=== PATIENT | female | born 1970 | race Caucasian/White ===

== ENCOUNTER 2020-08-02 06:53 | Inpatient (IN) | payer BC, SELFPAY ==
[2020-08-02] VITALS (13 sets, daily range): BP systolic 95–150; BP diastolic 47–106; PULSE 94–123; RESP 14–20; TEMP 36.3–38.2; O2SAT 94–98; BMI 28.7
--- NOTE | ~2020-08-02 | FL_ITS ---
EXAMINATION: XR FLUOROSCOPY WITH IMAGES CLINICAL INFORMATION: Left ureteral stone COMPARISON: Previous CT of the abdomen and pelvis 08/02/2020 TECHNIQUE: Fluoroscopy performed by Dr. Michael Cuba. Fluoroscopy time: 52 seconds Dose: 11.5 mGy Images: 1 FINDINGS: Image demonstrates the distal end of a left internal ureteral stent. FL/FL guidance in OR IMPRESSION: Fluoroscopy guidance for left ureteral stent placement.
--- NOTE | ~2020-08-02 | CT_ITS ---
EXAMINATION: CT ABDOMEN AND PELVIS WITHOUT CONTRAST CLINICAL INFORMATION: Left flank pain COMPARISON: None TECHNIQUE: Multidetector volumetric imaging was performed from the superior aspect of the liver through the pubic symphysis. Sagittal and coronal reformatted images were obtained on the technologist's workstation. This CT examination was performed using dose optimization techniques as appropriate, variously including the following: *Automated exposure control *Adjustment of mA and/or kV according to patient size (this includes techniques or standardized protocols for targeted exams where dose is matched to indication/reason for exam; i.e. extremities or head) *Use of iterative reconstruction technique DLP: 528 mGy-cm FINDINGS: LUNG BASES: Minimal platelike atelectasis in the left lower lobe lateral basal segment. A small hiatal hernia is suspected. Minimal anterior pericardial effusion noted heart size is mildly enlarged. LIVER, GALLBLADDER, AND BILIARY TREE: The liver is enlarged in size measuring 26 cm. Otherwise normal shape and attenuation. No focal hepatic lesion or biliary ductal dilatation is present. The gallbladder is unremarkable with no evidence of radiopaque gallstones, gallbladder wall thickening, or obvious pericholecystic inflammatory changes. PANCREAS: Unremarkable. SPLEEN: Unremarkable. ADRENAL GLANDS: Unremarkable. KIDNEYS AND URETERS: The kidneys are normal in size, shape, and attenuation. There are clusters of small radiopaque calculi in the lower pole mild irregular measuring at least 1.3 cm. There is a 6 mm left UPJ radiopaque calculi with mild hydronephrosis and left perinephric stranding. Left kidney slightly enlarged.. There is a subtle 4 mm radiopaque calculi mid pole calyx right kidney. There is no right-sided hydronephrosis. BLADDER: Unremarkable. GASTROINTESTINAL TRACT: There is scattered stool and gas seen throughout the colon without distention. The small bowel loops are normal caliber. Appendix is normal caliber with appendicolith. No free air or free fluid seen. ABDOMINAL WALL: A small umbilical hernia containing fat is noted. LYMPH NODES: Normal. VASCULAR: Unremarkable. PELVIC VISCERA: The uterus is anteverted with punctate calcification in the anterior body of uterus. No adnexal mass or free fluid seen. OSSEOUS STRUCTURES: Unremarkable. CT/CT abdomen pelvis wo con IMPRESSION: 6 mm left UPJ obstructive calculi with mild hydroureteronephrosis and perinephric stranding. There is cluster of radiopaque calculi measuring 1.3 cm in the lower pole left kidney. There is a punctate 4 mid calculi mid pole right kidney. No hydronephrosis seen. Mild constipation. Normal appendix with appendicolith
--- NOTE | 2020-08-02 07:07 | ED.BACK ---
HPI - Back Pain/Injury General Chief Complaint: Abdominal Pain Stated Complaint: back pain Time Seen by Provider: 08/02/20 07:07 Source: patient Mode of arrival: ambulatory Limitations: no limitations History of Present Illness HPI Narrative: 49 yo female otherwise healthy here with L flank pain nausea and vomiting, no trauma, no prior events like this, woke up with pain MD elicited complaint: other (flank pain) Onset (ago): hour(s) Timing: constant and progressively worsening Severity: severe Similar Symptoms Previously: No Quality: sharp Location: left flank Radiation: abdomen Exacerbating factors: none Relieving factors: none Context: unknown Associated symptoms: other (nausea and vomiting) Related Data Allergies Allergy/AdvReac Type Severity Reaction Status Date / Time No Known Allergies Allergy Verified 08/02/20 07:21 Review of Systems Review of Systems: Constitutional : No Weight loss, No Fever, No Chills ENT/Mouth : No sore throat, No Rhinorrhea Eyes: No Swelling, No Redness Cardiovascular : No Chest Pain, No SOB, NoEdema Respiratory : No Cough, No Sputum, No Wheezing Gastrointestinal : Positive Nausea, Positive Vomiting, no Diarrhea, positive abdominal Pain, No Hematochezia, No Melena Genitourinary : No Dysuria, No Urinary Frequency, No Hematuria, No Urgency Musculoskeletal : No joint pain, No Myalgias, No Joint Swelling, pos back pain Skin : No Skin Lesions, No rash Neuro : No Weakness, No Numbness, No Dizziness, No Headache Psych : No Anxiety/Panic, No Depression Heme/Lymph: No Bruising, No Lymphadenopathy Endocrine : No Polyuria, No Polydipsia All other systems reviewed and are negative. [facility] Past Medical History Attestation statement: The following information was validated with the patient. Medical History No active medical problems Social History Social History (Updated 08/02/20 @ 07:31 by Layla Elder DO) Patient Tobacco Use Status: Never used Tobacco Use of substances other than those prescribed or required for medical reasons: No Advance Directives: Yes Advance Directives Information Provided: Yes Advance Directives on File: No Patient : No Physical Exam Vital Signs: Vital Signs: Last Vital Signs Temp 99.3 F 08/02/20 10:40 Pulse 109 H 08/02/20 10:40 Resp 14 08/02/20 10:40 BP 135/76 08/02/20 10:40 Pulse Ox 95 08/02/20 10:40 Body Mass Index 28.7 Appearance: Alert. Oriented X3. Anxious in pain mild acute distress. Pacing in room Eyes: Pupils equal, round and reactive to light. ENT: Pharynx normal. Neck: Normal inspection. Neck supple. CVS: Normal heart rate and rhythm. Pulses normal. Respiratory: No respiratory distress. Breath sounds normal. Abdomen: Soft and mild L sided abdominal pain Back: moderate L CVA ttp Skin: Skin warm and dry. Normal skin color. Normal skin turgor. Extremities: No lower extremity edema. No calf ttp Neuro: Oriented X 3. No motor deficit. No sensory deficit. Course Course Course Narrative: call to Dr. Cuba 934am - plan to admit plan to admit for procedure, patient has been NPO since arrival MDM - Back Pain/Injury MDM Narrative Medical decision making narrative: 49 yo female otherwise healthy here with L flank pain nausea and vomiting, no trauma, no prior events like this, woke up with pain at this time her presentation is concerning for renal colic at this time will need labs, CT scan for renal colic, IVF, IV toradol and IV morphine for pain, UA study. dispo per results Lab Data Result diagrams: 08/02/20 07:31 08/02/20 07:31 Labs: Lab Results 08/02/20 08/02/20 08/02/20 Range/Units 07:31 07:31 07:31 WBC 13.5 H (4.8-10.8) X10*3/uL RBC 4.76 (4.20-5.50) X10*6/uL Hgb 13.6 (12.0-16.0) g/dl Hct 41.3 (37-47) % MCV 86.8 (80-98) fL MCH 28.6 (27.0-33.0) pg MCHC 32.9 (31.0-35.0) g/dl RDW 12.6 (11.0-16.0) % Plt Count 350 (160-400) X10*3/uL MPV 9.5 (9.4-12.3) fL Immature Gran % (Auto) 0.3 (0.0-0.4) % Neut % (Auto) 78.1 H (45-73) % Lymph % (Auto) 16.4 L (20-40) % [place] % (Auto) 4.1 (2-11) % Eos % (Auto) 0.7 (0-4) % Baso % (Auto) 0.4 (0-2) % Lymph # (Auto) 2.2 (1.2-4.9) X10*3/uL [place] # (Auto) 0.6 (0.1-1.2) X10*3/uL Eos # (Auto) 0.1 (0.0-0.4) X10*3/uL Baso # (Auto) 0.1 (0.0-0.2) X10*3/uL Abs Immat Gran (auto) 0.04 H (0.00-0.03) X10*3/uL Absolute Neuts (auto) 10.5 H (2.0-8.3) X10*3/uL Absolute Nucleated RBC 0.000 (0.0-0.012) X10*3/uL Nucleated RBC % (auto) 0.0 (0.0-0.2) /100WBC Hold Blue Top SEE NOTE Sodium 139 (135-145) mmol/L Potassium 4.4 (3.3-5.1) mmol/L Chloride 103 (96-108) mmol/L Carbon Dioxide 27 (22-29) mmol/L Anion Gap 13 (12-20) BUN 21 H (9-16) mg/dL Creatinine 1.16 (0.5-1.4) mg/dL Estim Creat Clear Calc 54.1 Estimated GFR 50 Random Glucose 120 H (60-115) mg/dL Calcium 10.1 (8.4-10.2) mg/dL Magnesium 2.1 (1.6-2.6) mg/dL Total Bilirubin 0.4 (0.0-1.0) mg/dL Direct Bilirubin < 0.2 (0.0-0.5) mg/dL AST 16 (5-31) U/L ALT 16 (0-31) U/L Alkaline Phosphatase 111 (39-117) U/L Total Protein 7.4 (6.5-8.0) g/dL Albumin 4.6 (3.5-5.0) g/dL Lipase 23 (8-78) U/L Urine Color Urine Appearance Urine pH (5.0-8.0) Ur Specific [place] (1.005-1.025) Urine Protein (NEG-TRACE) MG/DL Urine Glucose (UA) (NEG) MG/DL Urine Ketones (NEG) MG/DL Urine Blood (NEG) Urine Nitrite (NEG) Ur Leukocyte Esterase (NEG) Urine RBC (0) /HPF Urine WBC (0-4) /HPF Ur Squamous Epith Cells /LPF Calcium Oxalate Crystal /LPF Amorphous Sediment /LPF Urine Bacteria /LPF 08/02/20 Range/Units 07:31 WBC (4.8-10.8) X10*3/uL RBC (4.20-5.50) X10*6/uL Hgb (12.0-16.0) g/dl Hct (37-47) % MCV (80-98) fL MCH (27.0-33.0) pg MCHC (31.0-35.0) g/dl RDW (11.0-16.0) % Plt Count (160-400) X10*3/uL MPV (9.4-12.3) fL Immature Gran % (Auto) (0.0-0.4) % Neut % (Auto) (45-73) % Lymph % (Auto) (20-40) % [place] % (Auto) (2-11) % Eos % (Auto) (0-4) % Baso % (Auto) (0-2) % Lymph # (Auto) (1.2-4.9) X10*3/uL [place] # (Auto) (0.1-1.2) X10*3/uL Eos # (Auto) (0.0-0.4) X10*3/uL Baso # (Auto) (0.0-0.2) X10*3/uL Abs Immat Gran (auto) (0.00-0.03) X10*3/uL Absolute Neuts (auto) (2.0-8.3) X10*3/uL Absolute Nucleated RBC (0.0-0.012) X10*3/uL Nucleated RBC % (auto) (0.0-0.2) /100WBC Hold Blue Top Sodium (135-145) mmol/L Potassium (3.3-5.1) mmol/L Chloride (96-108) mmol/L Carbon Dioxide (22-29) mmol/L Anion Gap (12-20) BUN (9-16) mg/dL Creatinine (0.5-1.4) mg/dL Estim Creat Clear Calc Estimated GFR Random Glucose (60-115) mg/dL Calcium (8.4-10.2) mg/dL Magnesium (1.6-2.6) mg/dL Total Bilirubin (0.0-1.0) mg/dL Direct Bilirubin (0.0-0.5) mg/dL AST (5-31) U/L ALT (0-31) U/L Alkaline Phosphatase (39-117) U/L Total Protein (6.5-8.0) g/dL Albumin (3.5-5.0) g/dL Lipase (8-78) U/L Urine Color YELLOW Urine Appearance CLEAR Urine pH 6.0 (5.0-8.0) Ur Specific [place] >= 1.030 H (1.005-1.025) Urine Protein NEG (NEG-TRACE) MG/DL Urine Glucose (UA) NEG (NEG) MG/DL Urine Ketones NEG (NEG) MG/DL Urine Blood 2+ H (NEG) Urine Nitrite NEG (NEG) Ur Leukocyte Esterase NEG (NEG) Urine RBC 5-9 H (0) /HPF Urine WBC 5-9 H (0-4) /HPF Ur Squamous Epith Cells TRACE /LPF Calcium Oxalate Crystal TRACE /LPF Amorphous Sediment TRACE /LPF Urine Bacteria NONE /LPF Discharge Plan Discharge Clinical Impression: Ureterolithiasis Patient Disposition: Admitted As Inpatient
[2020-08-02 07:36] LABS: MANUAL DIFF FLAG NO
[2020-08-02] MEDS: Ketorolac Tromethamine 30 MG/ML VIAL IVPUSH (07:37)
[2020-08-02] MEDS: ondansetron HCL 4 MG/2 ML VIAL IVPUSH (07:39)
[2020-08-02] MEDS: 0.9 % Sodium Chloride 1,000 ML 999 ML IVCONT (07:39)
[2020-08-02 07:41] LABS: Basophils Absolute Auto 0.1 X10*3/uL (0.0-0.2); Basophils Percent Auto 0.4 % (0-2); Eosinophils Absolute Auto 0.1 X10*3/uL (0.0-0.4); Eosinophils Percent Auto 0.7 % (0-4); Hematocrit 41.3 % (37-47); Hemoglobin 13.6 g/dl (12.0-16.0); Imm Gran Abs Auto 0.04 X10*3/uL (0.00-0.03); Imm Gran Pct Auto 0.3 % (0.0-0.4); Lymphocytes Absolute Auto 2.2 X10*3/uL (1.2-4.9); Lymphocytes Percent Auto 16.4 % (20-40); Mean Corpuscular HGB Conc 32.9 g/dl (31.0-35.0); Mean Corpuscular Hemoglobin 28.6 pg (27.0-33.0); Mean Corpuscular Volume 86.8 fL (80-98); Mean Platelet Volume 9.5 fL (9.4-12.3); Monocytes Absolute Auto 0.6 X10*3/uL (0.1-1.2); Monocytes Percent Auto 4.1 % (2-11); Neutrophils Absolute Auto 10.5 X10*3/uL (2.0-8.3); Neutrophils Percent Auto 78.1 % (45-73); Platelet Count 350 X10*3/uL (160-400); Red Blood Count 4.76 X10*6/uL (4.20-5.50); Red Cell Distribution Width 12.6 % (11.0-16.0); White Blood Count 13.5 X10*3/uL (4.8-10.8)
[2020-08-02 07:43] LABS: Glucose Urine UA NEG (NEG); Leukocyte Esterase Urine NEG (NEG); Nitrite Urine NEG (NEG); Specific Gravity - Urine >= 1.030 (1.005-1.025); Urine Blood 2+ (NEG); Urine Ketones NEG (NEG); Urine Protein NEG (NEG-TRACE)
[2020-08-02 07:44] LABS: Appearance Urine CLEAR; Color Urine YELLOW
[2020-08-02] MEDS: Morphine Sulfate 4 MG/ML CARTRIDGE IVPUSH (07:46)
[2020-08-02] MEDS: HYDROmorphone HCl 1 MG/ML SYRINGE IVPUSH (08:01)
[2020-08-02 08:03] LABS: Amorphous Sediment Urine TRACE /LPF; Calcium Oxalate Crystals Urine TRACE /LPF; Squamous Epithelial Cell Urine TRACE /LPF; UACC CULT YES
[2020-08-02 08:10] LABS: Alanine Aminotransferase 16 U/L (0-31); Albumin Level 4.6 g/dL (3.5-5.0); Alkaline Phosphatase 111 U/L (39-117); Anion Gap 13 (12-20); Aspartate Amino Transferase 16 U/L (5-31); Bilirubin Direct < 0.2 mg/dL (0.0-0.5); Bilirubin Total 0.4 mg/dL (0.0-1.0); Blood Urea Nitrogen 21 mg/dL (9-16); Calcium 10.1 mg/dL (8.4-10.2); Carbon Dioxide 27 mmol/L (22-29); Chloride 103 mmol/L (96-108); Creatinine Clr Calc Pharmacy 54.1; Estimated Glomerular Filt Rate 50; Glucose Random 120 mg/dL (60-115); Lipase 23 U/L (8-78); Magnesium 2.1 mg/dL (1.6-2.6); Potassium 4.4 mmol/L (3.3-5.1); Sodium 139 mmol/L (135-145); Total Protein 7.4 g/dL (6.5-8.0)
[2020-08-02] MEDS: Tamsulosin HCL 0.4 MG CAPSULE PO ×2 (09:59→23:38)
[2020-08-02] MEDS: methylPREDNISolone Sod Succ 125 MG/2 ML VIAL 60 MG IVPUSH (09:59)
--- NOTE | 2020-08-02 11:06 | HE.PHANOTE ---
MED REC COMPLETE, NO ISSUES
[2020-08-02 11:37] LABS: COVID-19 Test Negative (Negative)
--- NOTE | 2020-08-02 13:20 | P.CNUR_ITS ---
History of Present Illness Consult details Consult date: 08/02/20 Narrative: Corey is a pleasant female. She is a patient of Dr. Hinds Presents through the emergency room with left-sided flank pain for 24 hours Associated nausea and vomiting Pain up to 10/10 Has responded to pain medication No prior history of stones CT imaging shows proximal left ureter with 6 mm stone Mild rise in creatinine Normal white count Discussed treatment options She is heading to [place] in a week and a half Advised cystoscopy, retrograde, ureteroscopy, laser lithotripsy and stent placement on the left side This will be organized Review of Systems Constitutional: Constitutional: Denies chills and Denies fever(s) Cardiovascular: Cardiovascular: Reports no additional cardiovascular complaints and Denies syncope Respiratory: Respiratory: Denies cough Gastrointestinal: Gastrointestinal: Denies abdominal pain and Denies heartburn Genitourinary: Genitourinary: Reports as per HPI and Denies change in libido Neurologic: Denies syncope Psychiatric: Psychiatric: Denies change in libido Endocrine: Endocrine: Denies change in libido [facility] Past Medical History Medical History No active medical problems Social History Social History (Updated 08/02/20 @ 07:31 by Layla Elder DO) Patient Tobacco Use Status: Never used Tobacco Use of substances other than those prescribed or required for medical reasons: No Advance Directives: Yes Advance Directives Information Provided: Yes Advance Directives on File: No Patient : No Meds Allergies Allergy/AdvReac Type Severity Reaction Status Date / Time No Known Allergies Allergy Verified 08/02/20 07:21 Active Medications: Current Medications Generic Name Dose Route Start Last Admin Trade Name Freq PRN Reason Stop Dose Admin Levofloxacin 500 mg 08/02/20 13:30 Levofloxacin 500 Mg Tablet PO 08/02/20 13:31 ONCE ONE Pharmacy Consult 1 each 08/02/20 10:42 Consult Rx Perform Med Rec MISCELLANE ONCE PRN Consult order Home Medications Medication Instructions Recorded Confirmed Last Taken Type Lactobacillus rhamnosus GG 1 cap PO DAILY 08/02/20 08/02/20 Unknown History cholecalciferol (vitamin D3) 10 mcg PO DAILY 08/02/20 08/02/20 Unknown History [Vitamin D3] fluticasone propionate [Flonase] 1 spray INTRANASAL DAILY 08/02/20 08/02/20 Unknown History loratadine 10 mg PO DAILY 08/02/20 08/02/20 Unknown History multivitamin 1 tab PO DAILY 08/02/20 08/02/20 Unknown History Physical Exam Vital Signs: Vital Signs: Last Vital Signs Temp 99.3 F 08/02/20 10:40 Pulse 109 H 08/02/20 10:40 Resp 14 08/02/20 10:40 BP 135/76 08/02/20 10:40 Pulse Ox 95 08/02/20 10:40 Body Mass Index 28.7 Const: General: cooperative, healthy appearing, comfortable and no acute distress Orientation/consciousness: patient oriented x3 HENMT: Face and sinus: Yes normal facial exam Mouth: moist mucous membranes Neck: Neck: Yes normal visual inspection, Yes full ROM and Yes trachea midline Chest: Chest palpation & inspection: normal inspection of the chest Resp: Effort & Inspection: normal respiratory effort, able to speak in complete sentences and no respiratory distress GI: Inspection: Yes normal to inspection Back/Spine/Pelvis: Cervical Spine: normal cervical lordosis Thoracic/Lumbar Spine: thoracic and lumbar spine normal to inspection Skin: General skin exam: no rashes or lesions noted Neuro: General: patient oriented x3, gait normal, tone normal and moves all extremities Extrem: General: Yes normal to inspection and Yes capillary refill normal Results Labs Result diagrams: 08/02/20 07:31 08/02/20 07:31 Labs: Abnormal lab results 08/02/20 08/02/20 08/02/20 Range/Units 07:31 07:31 07:31 WBC 13.5 H (4.8-10.8) X10*3/uL Neut % (Auto) 78.1 H (45-73) % Lymph % (Auto) 16.4 L (20-40) % Abs Immat Gran (auto) 0.04 H (0.00-0.03) X10*3/uL Absolute Neuts (auto) 10.5 H (2.0-8.3) X10*3/uL BUN 21 H (9-16) mg/dL Random Glucose 120 H (60-115) mg/dL Ur Specific [place] >= 1.030 H (1.005-1.025) Urine Blood 2+ H (NEG) Urine RBC 5-9 H (0) /HPF Urine WBC 5-9 H (0-4) /HPF Short CBC 08/02/20 Range/Units 07:31 WBC 13.5 H (4.8-10.8) X10*3/uL Hgb 13.6 (12.0-16.0) g/dl Hct 41.3 (37-47) % Plt Count 350 (160-400) X10*3/uL BMP 08/02/20 07:31 Sodium 139 Potassium 4.4 Chloride 103 Carbon Dioxide 27 BUN 21 H Creatinine 1.16 Calcium 10.1 Liver Function 08/02/20 Range/Units 07:31 Total Bilirubin 0.4 (0.0-1.0) mg/dL Direct Bilirubin < 0.2 (0.0-0.5) mg/dL AST 16 (5-31) U/L ALT 16 (0-31) U/L Alkaline Phosphatase 111 (39-117) U/L Albumin 4.6 (3.5-5.0) g/dL Urine 08/02/20 Range/Units 07:31 Urine Color YELLOW Urine Appearance CLEAR Urine pH 6.0 (5.0-8.0) Ur Specific [place] >= 1.030 H (1.005-1.025) Urine Protein NEG (NEG-TRACE) MG/DL Urine Glucose (UA) NEG (NEG) MG/DL All other labs normal. Assessment and Plan (1) Ureterolithiasis: Status: Acute Ureteroscopy We discussed the nature of the decision and reasonable alternatives for performing the above surgery. Interventions include chemical dissolution, ESWL, ureteroscopy with laser lithotripsy and stent placement, PCNL. Options such as medical therapy were discussed. The relative uncertainties and benefits related to each alternate procedure were adequately discussed. General surgical risks including, but not limited to, pain, bleeding, infection, myocardial infarction, pulmonary embolus, deep vein thrombosis and cerebrovascular accident which may result in further hospitalization were discussed. Full disclosure of the procedure as well as all major risks, benefits and complications were discussed including but not limited to damage to the urethra, bladder and kidney infection, damage to the ureter, stent migration or m alposition, scarring to the renal pelvis, remnant stone fragments, subsequent stone passage with need for secondary procedures. The overall secondary procedure rate is approximately 10-15%. The success rate of the procedure was discussed. Success of the procedure in the short-term does not necessarily guarantee that long-term success will be maintained. Suitable follow up will need to be maintained. The patient showed understanding of discussion and wishes to proceed with - cystoscopy, retrograde, ureteroscopy, possible lithotripsy/stone basketing and stent on the left side Procedures Date of Service Date of Service: 08/02/20
[2020-08-02] MEDS: Acetaminophen 325 MG TABLET 650 MG PO ×2 (13:21→23:38)
[2020-08-02] MEDS: levoFLOXacin 500 MG TABLET PO (13:21)
[2020-08-02] MEDS: Gentamicin Sulfate/NaCl 80 MG/100 ML PIGGYBACK 100 MG IV (20:50)
--- NOTE | 2020-08-02 21:01 | MHC.SHP ---
Pre-Procedural Eval Section A The patient is an INPATIENT: No Changes since office visit: No Cold of Flu in the past 2 weeks, No New Medical Problems, No Changes in Medication and No Patient answered all questions The History & Physical has been completed within 30 days and I have reviewed it.: Yes Section B Chief Complaint: back pain Allergies: Allergies Allergy/AdvReac Type Severity Reaction Status Date / Time No Known Allergies Allergy Verified 08/02/20 07:21 Plan Diagnosis/Plan: Unchanged (Left retrograde, ureteroscopy, laser lithotripsy, stent placement) I have reviewed the history and physical and performed a pertinent physical examination on my patient. No changes have occurred unless specified.
--- NOTE | 2020-08-02 21:03 | HO.ANESPROP2 ---
[facility] Active Problems Active Problems: All Active Problems (Updated 08/02/20 @ 10:45 by Layla Elder DO) Ureterolithiasis (Acute) Past Medical History Medical History No active medical problems Social History Social History (Updated 08/02/20 @ 07:31 by Layla Elder DO) Patient Tobacco Use Status: Never used Tobacco Use of substances other than those prescribed or required for medical reasons: No Advance Directives: Yes Advance Directives Information Provided: Yes Advance Directives on File: No Patient : No Meds Allergies Allergy/AdvReac Type Severity Reaction Status Date / Time No Known Allergies Allergy Verified 08/02/20 07:21 Active Medications: Current Medications Generic Name Dose Route Start Last Admin Trade Name Freq PRN Reason Stop Dose Admin Pharmacy Consult 1 each 08/02/20 10:42 Consult Rx Perform Med Rec MISCELLANE ONCE PRN Consult order Home Medications Medication Instructions Recorded Confirmed Last Taken Type Lactobacillus rhamnosus GG 1 cap PO DAILY 08/02/20 08/02/20 Unknown History cholecalciferol (vitamin D3) 10 mcg PO DAILY 08/02/20 08/02/20 Unknown History [Vitamin D3] fluticasone propionate [Flonase] 1 spray INTRANASAL DAILY 08/02/20 08/02/20 Unknown History loratadine 10 mg PO DAILY 08/02/20 08/02/20 Unknown History multivitamin 1 tab PO DAILY 08/02/20 08/02/20 Unknown History Exam Exam Date and Time: August 02, [id number] Height,Weight and Vital Signs: Height 5 ft 2 in Weight 71.214 kg Last Vital Signs Temp 100.8 F H 08/02/20 19:31 Pulse 123 H 08/02/20 19:31 Resp 20 08/02/20 19:31 BP 126/71 08/02/20 19:31 Pulse Ox 96 08/02/20 19:31 Pertinent Lab Results Pertinent Lab Results: Laboratory Tests 08/02/20 08/02/20 08/02/20 07:31 07:31 07:31 WBC 13.5 H RBC 4.76 Hgb 13.6 Hct 41.3 MCV 86.8 MCH 28.6 MCHC 32.9 RDW 12.6 Plt Count 350 MPV 9.5 Immature Gran % (Auto) 0.3 Neut % (Auto) 78.1 H Lymph % (Auto) 16.4 L [place] % (Auto) 4.1 Eos % (Auto) 0.7 Baso % (Auto) 0.4 Lymph # (Auto) 2.2 [place] # (Auto) 0.6 Eos # (Auto) 0.1 Baso # (Auto) 0.1 Abs Immat Gran (auto) 0.04 H Absolute Neuts (auto) 10.5 H Absolute Nucleated RBC 0.000 Nucleated RBC % (auto) 0.0 Hold Blue Top SEE NOTE Sodium 139 Potassium 4.4 Chloride 103 Carbon Dioxide 27 Anion Gap 13 BUN 21 H Creatinine 1.16 Estim Creat Clear Calc 54.1 Estimated GFR 50 Random Glucose 120 H Calcium 10.1 Magnesium 2.1 Total Bilirubin 0.4 Direct Bilirubin < 0.2 AST 16 ALT 16 Alkaline Phosphatase 111 Total Protein 7.4 Albumin 4.6 Lipase 23 Urine Color Urine Appearance Urine pH Ur Specific [place] Urine Protein Urine Glucose (UA) Urine Ketones Urine Blood Urine Nitrite Ur Leukocyte Esterase Urine RBC Urine WBC Ur Squamous Epith Cells Calcium Oxalate Crystal Amorphous Sediment Urine Bacteria COVID-19 (KELLEN) COVID-[employer] 08/02/20 08/02/20 07:31 11:04 WBC RBC Hgb Hct MCV MCH MCHC RDW Plt Count MPV Immature Gran % (Auto) Neut % (Auto) Lymph % (Auto) [place] % (Auto) Eos % (Auto) Baso % (Auto) Lymph # (Auto) [place] # (Auto) Eos # (Auto) Baso # (Auto) Abs Immat Gran (auto) Absolute Neuts (auto) Absolute Nucleated RBC Nucleated RBC % (auto) Hold Blue Top Sodium Potassium Chloride Carbon Dioxide Anion Gap BUN Creatinine Estim Creat Clear Calc Estimated GFR Random Glucose Calcium Magnesium Total Bilirubin Direct Bilirubin AST ALT Alkaline Phosphatase Total Protein Albumin Lipase Urine Color YELLOW Urine Appearance CLEAR Urine pH 6.0 Ur Specific [place] >= 1.030 H Urine Protein NEG Urine Glucose (UA) NEG Urine Ketones NEG Urine Blood 2+ H Urine Nitrite NEG Ur Leukocyte Esterase NEG Urine RBC 5-9 H Urine WBC 5-9 H Ur Squamous Epith Cells TRACE Calcium Oxalate Crystal TRACE Amorphous Sediment TRACE Urine Bacteria NONE COVID-19 (KELLEN) Negative COVID-19 Clin Com See Note Airway Mallampati Class: II TM Dist: >3cm Neck ROM: Full Heart: ST Lungs: CTA Assessment and Plan Assessment Anesthesia Assessment: Anesthesia Plan Discussed and Chart Reviewed Final Anesthetic Review NPO: Yes ASA Class: II and Emergency Final Preanesthetic Review: No Changes in Pt Med Stat, Meds/Allgs Chart Reviewed, Consent Obtained/Reviewed and Anes Risks/Benef Reviewed Patient Risk: Low Procedure Risk: Low Anesthetic Plan Anesthetic Plan: GA Disposition: Standard PACU
--- NOTE | 2020-08-02 21:45 | W.PM.OPN ---
Operative Note Operative Note Date of Service: 08/02/20 Narrative: PreOperative Diagnosis: Left proximal ureteric stone Post Operative Diagnosis: Left proximal ureteric stone with pyelonephritis Procedure: - left cystoscopy, retrograde - left dilatation of ureteric orifice under fluoroscopy - ureteroscopy - left stent placement Surgeon: Dr Michael Cuba Anesthesia: General Indications for procedure: This is a 49-year-old female. For admission through the emergency room. Two day onset left-sided flank pain. CT imaging with 6 state mm stone left proximal ureter. Procedure: After informed consent was verified patient was brought to the operating placed in supine position. Anesthesia was administered per protocol. Patient was placed in modified dorsal lithotomy position and prepped and draped in a sterile fashion. Safety pause time-out and side of surgery confirmed. Antibiotics confirmed. Twenty[place]two [place] cystoscope was placed per urethra. The bladder was emptied. The left ureteric orifice was normal position. Retrograde examination was performed. Filling defect was seen in the proximal portion left ureter. A Sensor guidewire was placed Open-ended catheter was placed. The kidney was aspirated with purulent material. This is sent for culture. Sensor guidewire was replaced. A Davi dilator was used to dilate the ureteric orifice under fluoroscopy. A rigid ureteral scope was placed alongside the wire up to level of the UPJ. There was clearly inflammation from a prior stone which had been pushed back into the kidney. Because she had purulent material and question of leukocytosis a decision was made not to proceed with flexible ureteroscopy as this could cause pyelo venous back wash and potential sepsis. A 6 Citizen [place] by 22 cm stent was placed with good coil seen in the renal pelvis and in the bladder. The bladder was emptied. She tolerated procedure well was extubated in the operating room and transferred in stable condition to the recovery area Pathology: None Drains: 6 [place] by 22 cm stent
[2020-08-03] MEDS: Sodium Chloride 0.45 % 1,000 ML 80 ML IVCONT (01:07)
[2020-08-03] MEDS: Phenazopyridine HCL 100 MG TABLET PO (01:08)
[2020-08-03 03:18] VITALS: BP 105/58; PULSE 93; RESP 15; TEMP 36.1; O2SAT 96
--- NOTE | 2020-08-03 06:48 | HO.POSTANES ---
Post Anesthesia Evaluation Post Anesthesia Evaluation Vital Signs: Vital Signs Temp Pulse Resp BP Pulse Ox 08/03/20 03:18 97.0 F 93 15 105/58 L 96 08/02/20 23:23 97.8 F 97 15 106/57 L 95 08/02/20 23:04 98 F 103 H 20 111/61 96 08/02/20 22:46 112 H 18 107/65 96 08/02/20 22:34 110 H 18 99/74 96 08/02/20 22:19 104 H 16 95/47 L 95 08/02/20 22:04 115 H 16 109/64 94 08/02/20 21:59 118 H 16 107/62 95 08/02/20 21:54 117 H 16 102/60 98 08/02/20 21:49 98.5 F 113 H 17 103/56 L 98 08/02/20 19:31 100.8 F H 123 H 20 126/71 96 Anesthesia: General Mental Status: Awake Pain Control: Satisfactory Nausea/Vomiting: None Hydration: Adequate Anesthesia-Related Issues: No Anes. Related Issues
[2020-08-03] MEDS: Acetaminophen 325 MG TABLET 650 MG PO ×2 (07:45→14:05)
[2020-08-03 08:00] VITALS: BP 109/63; PULSE 72; RESP 20; TEMP 36.8; O2SAT 95
--- NOTE | 2020-08-03 09:31 | MHC.CM.PN ---
EMR REVIEWED, PT ADMITTED W/LEFT URETER STONE, CM MET W/PT WHO IS A & O X4, PT IS INDEPENDENT AT BASELINE, NO DME OR HOME SERVICES, PT VERIFIED PCP AND PHARMACY, PT ALSO REPORTS SHE DOES HAVE A HCP. PT REPORTS SHE IS RELOCATING TO [place] ON 08/15/20 WHERE HER HAS ALREADY STARTED HIS NEW JOB. D/C PLAN HOME SELF-CARE, FAMILY TO TRANSPORT HCP: PARVEZ TERRY (SPOUSE) [phone]
[2020-08-03 11:44] VITALS: BP 110/65; PULSE 90; RESP 18; TEMP 36.4; O2SAT 93
[2020-08-03 15:22] VITALS: BP 139/61; PULSE 86; RESP 19; TEMP 36.8; O2SAT 95
--- NOTE | 2020-08-03 16:06 | P.PNUR_ITS ---
Subjective Subjective Date of Service: 08/03/20 Interval history: significant improvement Left flank pain decrease Does have some urgency Recommend Pyridium which is ordered Can discharge today and will be contacted regarding procedure Thursday Physical Exam Vital Signs: Vital Signs: Last Vital Signs Temp 98.3 F 08/03/20 15:22 Pulse 86 08/03/20 15:22 Resp 19 08/03/20 15:22 BP 139/61 08/03/20 15:22 Pulse Ox 95 08/03/20 15:22 Body Mass Index 28.7 Const: General: cooperative, healthy appearing, comfortable and no acute distress Nutritional Appearance: average body habitus Orientation/consciousness: oriented to person, oriented to place and oriented to time Eyes: General: appearance normal, both eyes and all related structures Chest: Chest palpation & inspection: normal inspection of the chest Resp: Effort & Inspection: normal respiratory effort Cardio: Rate: regular rate GI: Inspection: Yes normal to inspection Skin: Hair: normal Neuro: General: oriented to person, oriented to place and oriented to time Extrem: General: Yes normal to inspection Urology Results Labs CBC & Chem 7: 08/02/20 07:31 08/02/20 07:31 Progress Note: A&P Assessment and plan (1) Elevated white blood cell count: Status: Acute (2) Ureterolithiasis: Status: Acute Assessment and Plan: plan for procedure Thursday Fall Risk Details Current Medications: Current Medications Generic Name Dose Route Start Last Admin Trade Name Freq PRN Reason Stop Dose Admin Acetaminophen 650 mg 08/02/20 22:44 08/03/20 14:05 Acetaminophen 325 Mg Tablet PO 650 mg Q4H PRN Administration Pain, Mild (Pain Scale 1-3) Fentanyl 25 mcg 08/02/20 21:05 Fentanyl Citrate/Pf 100 Mcg/2 Ml Vial IVPUSH Q5M PRN Pain, Moderate (Pain Scale 4-6 Hydromorphone HCl 0.25 mg 08/02/20 21:05 Hydromorphone Hcl 0.5 Mg/0.5 Ml Syringe IVPUSH Q5M PRN Pain, Severe (Pain Scale 7-10) Promethazine HCl 12.5 mg/ 50.5 mls @ 202 mls/hr 08/02/20 21:05 Sodium Chloride IV ONCE PRN Nausea and Vomiting Sodium Chloride 1,000 mls @ 80 mls/hr 08/02/20 22:45 08/03/20 14:07 IVCONT Infused .[id number] [facility] Infusion Ketorolac Tromethamine 30 mg 08/02/20 21:05 Ketorolac Tromethamine 30 Mg/Ml Vial IVPUSH ONCE PRN Pain, Moderate (Pain Scale 4-6 Ondansetron HCl 4 mg 08/02/20 21:05 Ondansetron Hcl 4 Mg/2 Ml Vial IVPUSH ONCE PRN Nausea and Vomiting Oxycodone HCl 5 mg 08/02/20 22:44 Oxycodone Hcl Immed Release 5 Mg Tablet PO Q4H PRN Pain, Mild (Pain Scale 1-3) Pharmacy Consult 1 each 08/02/20 10:42 Consult Rx Perform Med Rec MISCELLANE ONCE PRN Consult order Sodium Chloride 3 ml 08/03/20 00:00 08/03/20 11:09 0.9 % Sodium Chloride Flush 3 Ml Syringe IVFLUSH Not Given QSHIFT KATHERINE Tamsulosin HCl 0.4 mg 08/02/20 21:45 08/02/20 23:38 Tamsulosin Hcl 0.4 Mg Capsule PO 0.4 mg BEDTIME [facility] Administration Tramadol HCl 50 mg 08/02/20 21:43 Tramadol Hcl 50 Mg Tablet PO Q6H PRN Pain, Moderate (Pain Scale 4-6 Time Spent With Patient Time: Total time spent is greater than 50% in coordination of care (as documented) at patient's floor/unit and/or counseling patient: Time with patient: less than 15 minutes
--- NOTE | 2020-08-03 16:15 | PM.DS ---
DS: Providers Provider Date of Service: 08/03/20 Date of admission: 08/02/20 12:59 Primary care physician: Kamran Hinds MD DS: Diagnosis Discharge Diagnosis (1) Elevated white blood cell count: Status: Acute (2) Ureterolithiasis: Status: Acute Problem details: left-sided stent placed DS: Medications Discharge Medications Home Medications: Home Medications Medication Instructions Recorded Confirmed Lactobacillus rhamnosus GG 1 cap PO DAILY 08/02/20 08/02/20 cholecalciferol (vitamin D3) 10 mcg PO DAILY 08/02/20 08/02/20 [Vitamin D3] fluticasone propionate 1 spray INTRANASAL DAILY 08/02/20 08/02/20 loratadine 10 mg PO DAILY 08/02/20 08/02/20 multivitamin 1 tab PO DAILY 08/02/20 08/02/20 Previous Rx's Medication Instructions Recorded acetaminophen-codeine 1 tab PO Q6H PRN #14 tab 08/03/20 acetaminophen-codeine 1 tab PO Q6H PRN 7 Days #14 tab 08/03/20 phenazopyridine [Pyridium] 100 mg PO TID PRN 4 Days #12 tab 08/03/20 sulfamethoxazole-trimethoprim 1 tab PO BID 3 Days #7 tab 08/03/20 [Bactrim DS] tamsulosin 0.4 mg PO BEDTIME 14 Days #14 cap 08/03/20 DS: Summary Time Spent with Patient Time attestation: Total time spent providing and/or coordinating discharge services: Discharge coordination time: Less than 30 minutes Quality: Stroke Does the patient have a stroke diagnosis?: No Physical Exam Vital Signs: Vital Signs: Last Vital Signs Temp 98.3 F 08/03/20 15:22 Pulse 86 08/03/20 15:22 Resp 19 08/03/20 15:22 BP 139/61 08/03/20 15:22 Pulse Ox 95 08/03/20 15:22 Body Mass Index 28.7 DS: Data Data Completed and Pending Labs on day of discharge: Preliminary micro results at discharge 08/02/20 21:48 Urine Culture - Preliminary Nephron, Left No growth to date. Discharge Plan Discharge Patient Disposition: Home, Self-Care Discharge Diagnosis: Nephrolithiasis Referrals: Kamran Hinds MD [Primary Care Provider] - 1 Week Discharge Medications: New phenazopyridine [Pyridium] 100 mg tablet 100 mg PO TID PRN (Reason: Spasm) 4 Days Qty: 12 RF: 0 acetaminophen-codeine 300-30 mg tablet 1 tab PO Q6H PRN (Reason: pain (scale score 1-3)) Qty: 14 RF: 0 sulfamethoxazole-trimethoprim [Bactrim DS] 800-160 mg tablet 1 tab PO BID 3 Days Qty: 7 RF: 0 tamsulosin 0.4 mg capsule 0.4 mg PO BEDTIME 14 Days Qty: 14 RF: 0 acetaminophen-codeine 300-30 mg tablet 1 tab PO Q6H PRN (Reason: pain) 7 Days Qty: 14 RF: 0 Continued Lactobacillus rhamnosus GG 10 billion cell Capsule 1 cap PO DAILY RF: 0 multivitamin Tablet 1 tab PO DAILY RF: 0 fluticasone propionate 50 mcg/actuation [place],Suspension 1 spray INTRANASAL DAILY RF: 0 loratadine 10 mg Tablet 10 mg PO DAILY RF: 0 cholecalciferol (vitamin D3) [Vitamin D3] 10 mcg (400 unit) Tablet 10 mcg PO DAILY RF: 0 Discharge Orders: Discharge Order (Routine); Ordered 08/03/20 Ordered By: Michael Cuba Activity on Discharge: As tolerated Stand Alone Forms: Patient Portal Discharge page Care Plan Goals: stones Health Concerns: stones Plan of Treatment: stones Assessment: stones
== END 2020-08-03 16:49 | disposition home or self-care (01) | DRG 465 ==
LOC: HO.ED 13:32 → HO.SSS 22:03 → HO.SSSA 22:06 → HO.S3 22:25
PROVIDERS: Admitting Provider Urology; Emergency Provider Emergency Medicine; PCP Internal Medicine; Visit Provider Urology
PROC: 0T778DZ Dilation of Left Ureter with Intraluminal Device, Via Natural or Artificial Opening Endoscopic (ICD-10-PCS; principal; 2020-08-02 18:00)
DX: N20.1 Calculus of ureter (principal); D72.829 Elevated white blood cell count, unspecified; Z79.51 Long term (current) use of inhaled steroids; Z79.899 Other long term (current) drug therapy
CPT/HCPCS: 36415; 74176; 80048; 80076; 81001; 83690; 83735; 85025; 87086; 87088; 87186; 87635; 96374; 96375; 99285; C1758; C1769; C2617; J0131; J1170; J1580; J1885; J2270; J2405; J2930; Q9967

== ENCOUNTER 2020-08-06 18:25 | Day surgery (SDC) | payer BC, SELFPAY ==
[2020-08-06] VITALS (9 sets, daily range): BP systolic 97–157; BP diastolic 65–86; PULSE 83–110; RESP 20; TEMP 36.4–37.5; O2SAT 93–96; BMI 28.3
--- NOTE | ~2020-08-06 | FL_ITS ---
EXAMINATION: XR FLUOROSCOPY WITH IMAGES CLINICAL INFORMATION: Left UPJ obstructive calculi COMPARISON: None. TECHNIQUE: Fluoroscopy performed by Dr. Bereket Rodriguez. Fluoroscopy time: 15.6 seconds DAP: 3.44 mGycm2 Images: 1 FINDINGS: There is a single image obtained with C-arm revealing a small ureteral probe extending into left UPJ region. FL/FL guidance in OR IMPRESSION: Fluoroscopy was provided to Dr. Bereket Rodriguez during the procedure.
[2020-08-06] MEDS: Lactated Ringers 500 ML 20 ML IVCONT (19:05)
--- NOTE | 2020-08-06 19:11 | HO.ANESPROP2 ---
[facility], [facility] Active Problems Active Problems: All Active Problems (Updated 08/03/20 @ 16:15 by Michael Cuba MD) Elevated white blood cell count (Acute) Ureterolithiasis (Acute) Past Medical History Medical History No active medical problems Social History Social History (Updated 08/02/20 @ 07:31 by Layla Elder DO) Household Members: Family Housing: House Do you presently have visiting nurse or other home services: No Patient Tobacco Use Status: Never used Tobacco Advance Directives: Yes (not with pt) Advance Directives Information Provided: No Advance Directives on File: No service: No Current occupational status: employed Meds Allergies Allergy/AdvReac Type Severity Reaction Status Date / Time No Known Allergies Allergy Verified 08/02/20 07:21 Active Medications: Current Medications Generic Name Dose Route Start Last Admin Trade Name Freq PRN Reason Stop Dose Admin Lactated Ringer's 500 mls @ 20 mls/hr 08/06/20 19:15 Lr IVCONT .Q24H [facility] Home Medications Medication Instructions Recorded Confirmed Last Taken Type Lactobacillus rhamnosus GG 1 cap PO DAILY 08/02/20 08/02/20 Unknown History cholecalciferol (vitamin D3) 10 mcg PO DAILY 08/02/20 08/02/20 Unknown History [Vitamin D3] fluticasone propionate 1 spray INTRANASAL DAILY 08/02/20 08/02/20 Unknown History loratadine 10 mg PO DAILY 08/02/20 08/02/20 Unknown History multivitamin 1 tab PO DAILY 08/02/20 08/02/20 Unknown History Exam Exam Date and Time: August 06, 20201910 Height,Weight and Vital Signs: Height 5 ft 2 in Weight 70.307 kg Last Vital Signs Temp 98.7 F 08/06/20 18:34 Pulse 110 H 08/06/20 18:34 Resp 20 08/06/20 18:34 BP 117/74 08/06/20 18:34 Pulse Ox 96 08/06/20 18:34 Airway Mallampati Class: II TM Dist: >3cm Neck ROM: Full Heart: RRR Lungs: CTA Assessment and Plan Assessment Anesthesia Assessment: Anesthesia Plan Discussed and Chart Reviewed Final Anesthetic Review NPO: Yes ASA Class: II Final Preanesthetic Review: No Changes in Pt Med Stat, Meds/Allgs Chart Reviewed, Consent Obtained/Reviewed and Anes Risks/Benef Reviewed Patient Risk: Low Procedure Risk: Low Anesthetic Plan Anesthetic Plan: GA Disposition: Standard PACU
--- NOTE | 2020-08-06 19:57 | MHC.SHP ---
Pre-Procedural Eval Section A The patient is an INPATIENT: No Changes since office visit: No Cold of Flu in the past 2 weeks, No New Medical Problems, No Changes in Medication and No Patient answered all questions The History & Physical has been completed within 30 days and I have reviewed it.: Yes Section B Chief Complaint: calculus Allergies: Allergies Allergy/AdvReac Type Severity Reaction Status Date / Time No Known Allergies Allergy Verified 08/02/20 07:21 Plan Diagnosis/Plan: Unchanged (Cystoscopy, left stent removal, retrograde, ureteroscopy, laser, lithotripsy) I have reviewed the history and physical and performed a pertinent physical examination on my patient. No changes have occurred unless specified.
[2020-08-06] MEDS: levoFLOXacin 500 MG TABLET PO (20:01)
--- NOTE | 2020-08-06 20:46 | P.OP_ITS ---
Operative Note Operative Note Date of Service: 08/06/20 Narrative: PreOperative Diagnosis: Left renal stone Post Operative Diagnosis: Left renal stone Procedure: - cystoscopy, removal left stent, left retrograde - dilatation of ureteric orifice under fluoroscopy - left ureteroscopy, laser lithotripsy, stone basketing Surgeon: Dr Michael Cuba Anesthesia: General Indications for procedure: This is a 49-year-old female. Had presented last week through the emergency room with a left proximal ureteric stone. She had undergone procedure with stent placement. Is here for definitive management of her stones. Given there is more than 1 stone in her kidney recommendation was ureteroscopy versus ESWL. Procedure: After informed consent was verified patient was brought to the operating placed in supine position. Anesthesia was administered per protocol. Patient was placed in modified dorsal lithotomy position and prepped and draped in a sterile fashion. Safety pause time-out and side of surgery confirmed. Antibiotics confirmed. Twenty-two [place] cystoscope inserted per urethra. Stent seen from left urete paula orifice. Stent grasped and removed. Retrograde examination performed on left side. Sensor guidewire placed up to left renal pelvis Cystoscope removed. Dilatation left ureteric orifice performed other fluoroscopy with ureteric access sheath. Left flexible ureteroscopy performed. First stone encountered in upper pole. Hard stone. Broken with laser. Stone fragments removed with basket. Second stone encountered in left lower pole. This was dislodged. Able to be taken with the basket and removed. It was submucosal stones in the left lower pole. There was another stone small approximately 4 mm in the left lower pole however we were not able to access this with the flexible ureteral scope due to the angle of approach. Her bladder was emptied. She was extubated in operating room and transferred in stable condition to the recovery area. Pathology: Stones Drains:
[2020-08-06] MEDS: traMADoL HCL 50 MG TABLET PO (21:01)
[2020-08-06] MEDS: Phenazopyridine HCL 100 MG TABLET PO (21:01)
[2020-08-06] MEDS: Ketorolac Tromethamine 15 MG/ML VIAL 30 MG IV (21:21)
[2020-08-06] MEDS: ondansetron HCL 4 MG/2 ML VIAL IVPUSH (21:48)
[2020-08-11 16:31] LABS: Stone Source RENAL
== END 2020-08-06 22:04 | disposition home or self-care (01) ==
PROVIDERS: PCP Internal Medicine; Visit Provider Urology
PROC: (CPT 52356; principal; 2020-08-06 15:50)
DX: N20.0 Calculus of kidney (principal)
CPT/HCPCS: 52356; 52352; 82365; 88300; C1758; C1769; C1894; J1885; J2405; J3010; Q9967